=== PATIENT | female | born 1995 | race Caucasian/White ===

== ENCOUNTER → 2018-11-01 | Outpatient (CLI) | payer MEDICAID ==
--- NOTE | 2018-11-03 16:08 | XR ---
EXAMINATION TYPE: XR thoracic spine 2V DATE OF EXAM: 11/01/2018 COMPARISON: NONE HISTORY: 23-year-old female thoracic spine pain TECHNIQUE: 3 views FINDINGS: 12 rib-bearing thoracic vertebral bodies. All pedicles are visualized. Vertebral body heights are pre served and alignment is maintained. IMPRESSION: No vertebral compression collapse or malalignment.
== END | disposition home or self-care (01) ==
LOC: RADXRMAIN 15:52
PROVIDERS: ATTEND Family Medicine
DX: M54.6 Pain in thoracic spine (principal)
CPT/HCPCS: 72070